=== PATIENT | female | born 1965 | race Caucasian/White ===

== ENCOUNTER → 2018-05-26 | Outpatient (CLI) | payer BC ==
[~2018-05-26] MED LIST: CATHETER FLUSH 10 ML SYR IV PRN; CYCL10TA9 PO; IOHEXOL 350 MG/ML 100 ML (OMNIPAQUE 350) VIAL IV ONE; NAPR-243 PO; NS 100 ML (IVPB) BAG IV ONE
[2018-05-26 15:46] LABS: BASOPHILS % (AUTO) 0 % (0-10); EOSINOPHILS # (AUTO) 0.1 10^3/uL (0.0-0.3); EOSINOPHILS % (AUTO) 1 % (0-10); HEMATOCRIT 39 % (35-52); HEMOGLOBIN 13.2 G/DL (11.5-16.0); LYMPHOCYTES # (AUTO) 1.8 X 10^3 (1.0-4.0); LYMPHOCYTES % (AUTO) 26 % (12-44); MEAN CORPUSCULAR HEMOGLOBIN 29 PG (25-34); MEAN CORPUSCULAR HGB CONC 34 G/DL (32-36); MEAN CORPUSCULAR VOLUME 87 FL (80-99); MEAN PLATELET VOLUME 9.5 FL (7.4-10.4); MONOCYTES # (AUTO) 0.5 X 10^3 (0.0-1.0); MONOCYTES % (AUTO) 7 % (0-12); NEUTROPHILS # (AUTO) 4.7 X 10^3 (1.8-7.8); NEUTROPHILS % (AUTO) 67 % (42-75); PLATELET COUNT 318 10^3/uL (130-400); RED CELL DISTRIBUTION WIDTH 13.9 % (10.0-14.5); WHITE BLOOD COUNT 7.1 10^3/uL (4.3-11.0)
[2018-05-26 16:10] LABS: ALANINE AMINOTRANSFERASE 18 U/L (0-55); ALBUMIN 4.4 GM/DL (3.2-4.5); ALKALINE PHOSPHATASE 94 U/L (40-136); BILIRUBIN,TOTAL 0.4 MG/DL (0.1-1.0); BUN/CREATININE RATIO 19; CARBON DIOXIDE 27 MMOL/L (21-32); CHLORIDE 106 MMOL/L (98-107); CREATININE SERUM 0.69 MG/DL (0.60-1.30); GFR ESTIMATED > 60; GLUCOSE 99 MG/DL (70-105); POTASSIUM 4.1 MMOL/L (3.6-5.0); SODIUM 141 MMOL/L (135-145); TOTAL PROTEIN 7.4 GM/DL (6.4-8.2)
--- NOTE | 2018-05-26 16:55 | Diagnostic Imaging Report ---
PROCEDURE: CT abdomen and pelvis with contrast. TECHNIQUE: Multiple contiguous axial images were obtained through the abdomen and pelvis after administration of intravenous contrast. INDICATION: Right lower quadrant pain with diarrhea. FINDINGS: The air-containing appendix is unremarkable in appearance. No pericecal or periappendiceal edema or inflammation. There are no findings of appendicitis. There is no diverticulitis. Urinary tracts are unobstructed. There is cyst formation off the lower pole of the left kidney. The gallbladder is contracted. The liver and bile ducts are normal. The spleen, adrenals, and pancreas are unremarkable. The aortoiliac and mesenteric vessels are patent and nonaneurysmal. The uterus, adnexa, and urinary bladder are unremarkable. IMPRESSION: No evidence for appendicitis. Noninflamed diverticulosis. No bowel, biliary, or urinary tract obstruction. Left lower pole renal cortical cyst noted. There is some infiltration of the left perinephric fat adjacent to its lower pole, which may be chronic and reflective of old scarring. No hydronephrosis. Dictated by: Dictated on workstation # [id number]
== END ==
LOC: RAD 15:26
PROVIDERS: ATTEND Nurse Practitioner Family
DX: N28.1 Cyst of kidney, acquired (principal); K57.30 Diverticulosis of large intestine without perforation or abscess without bleeding
CPT/HCPCS: 36415; 74177; 80053; 85025

== ENCOUNTER 2023-07-20 18:31 | Emergency (ER) | payer BC, OTHER ==
[~2023-07-20] VITALS: Ht 162 cm; Wt 77.0 kg
[~2023-07-20 18:31] MED LIST changes: -CATHETER FLUSH 10 ML SYR IV PRN; -IOHEXOL 350 MG/ML 100 ML (OMNIPAQUE 350) VIAL IV ONE; -NS 100 ML (IVPB) BAG IV ONE
[2023-07-20 18:41] VITALS: BP 154/97
--- NOTE | 2023-07-20 19:19 | Diagnostic Imaging Report ---
PROCEDURE: CT head and maxillofacial without contrast. TECHNIQUE: Multiple contiguous axial images were obtained through the head and facial bones without the use of intravenous contrast. Auto Exposure Controls were utilized during the CT exam to meet ALARA standards for radiation dose reduction. INDICATION: Left eye redness and pain. Eye infection. Evaluate for foreign body. COMPARISON: No relevant comparison available. FINDINGS: The CT of the head demonstrates no evidence of an acute intracranial abnormality. There is no finding of intracranial hemorrhage. There is no intracranial mass effect or shift. There is no hydrocephalus. There is no extra-axial collection. Higginbotham-white matter differentiation is well-maintained. There is no finding of edema. Mastoid air cells are clear. The calvarium is unremarkable. The CT of the face demonstrates no evidence of an intraorbital or intraocular foreign body. There is no significant intraorbital fat stranding. There is no finding of inflammation within the post-septal orbit. There is no significant preseptal soft tissue swelling. There is no gas or abscess. There is no finding of an acute facial fracture. There is some minimal mucosal thickening in the ethmoids and left maxillary sinus. IMPRESSION: 1. No CT evidence of an acute intracranial abnormality. 2. No finding of an orbital foreign body or CT evidence of post septal inflammation within the orbit. There is no definable gas or abscess. Dictated by: Dictated on workstation # [id number]
--- NOTE | 2023-07-20 19:37 | ED EENT ---
History of Present Illness General Chief Complaint: Eye Problems Stated Complaint: EYE PAIN Nursing Triage Note: PT TO ED W/ C/O LT EYE REDNESS ONSET 07/05. REPORTS WAS SEEN AT DR PEREZ'S OFFICE, DX'D W/ "BACTERIAL INFECTION" PRESCRIBED ABX GTTS BUT DENIES IMPROVEMENT. STATES WORKS AT [employer] THINKS MAY HAVE POSS FB IN EYE Source: patient History of Present Illness Date Seen by Provider: Jul 20, 2023 Allergies and Home Medications Allergies Coded Allergies: No Known Drug Allergies (Unverified , 12/30/12) Patient Home Medication List Cyclobenzaprine Hcl (Cyclobenzaprine Hcl) 10 Mg Tablet, 1 EACH PO Q8HR PRN Prescribed by: JORGE RAMIREZ on 08/26/121904 Naproxen (Naprosyn) 500 Mg Tablet, 1 EACH PO TID PRN Prescribed by: JORGE RAMIREZ on 08/26/121904 Past Wvbdkye-Vbpyuc-Hohihk Hx Patient Social History Tobacco Use?: Yes Tobacco type used: Cigarettes Smoking Status: Current Everyday Smoker Use of E-Cig and/or Vaping dev: No Substance use?: No Alcohol Use?: No Pt feels they are or have been: No Seasonal Allergies Seasonal Allergies: No Past Medical History Surgery/Hospitalization HX: DENIED Surgeries: No Physical Exam Vital Signs Vital Signs - First Documented 07/20/23 18:41 Temp 37.2 Pulse 112 Resp 20 B/P (MAP) 154/97 (116) Pulse Ox 98 O2 Delivery Room Air Height, Weight, BMI Height: 5'4.00" Weight: 145lbs. oz. 65.301499gy; 29.00 BMI Method:Stated Progress/Results/Core Measures Results/Orders My Orders Orders - JORGE RAMIREZ DO Ct Head/Maxillofacial Wo (07/20/23 18:55) Vital Signs/I&O 07/20/23 18:41 Temp 37.2 Pulse 112 Resp 20 B/P (MAP) 154/97 (116) Pulse Ox 98 O2 Delivery Room Air Blood Pressure Mean: [address] HEAD/MAXILLOFACIALS-- PER RADIOLOGIST REPORT AT 1935 COMPARISON: No relevant comparison available. FINDINGS: The CT of the head demonstrates no evidence of an acute intracranial abnormality. There is no finding of intracranial hemorrhage. There is no intracranial mass effect or shift. There is no hydrocephalus. There is no extra-axial collection. Higginbotham-white matter differentiation is well-maintained. There is no finding of edema. Mastoid air cells are clear. The calvarium is unremarkable. The CT of the face demonstrates no evidence of an intraorbital or intraocular foreign body. There is no significant intraorbital fat stranding. There is no finding of inflammation within the post-septal orbit. There is no significant preseptal soft tissue swelling. There is no gas or abscess. There is no finding of an acute facial fracture. There is some minimal mucosal thickening in the ethmoids and left maxillary sinus. IMPRESSION: 1. No CT evidence of an acute intracranial abnormality. 2. No finding of an orbital foreign body or CT evidence of post septal inflammation within the orbit. There is no definable gas or abscess. Reviewed: Reviewed by Me Departure Impression Primary Impression: Conjunctivitis Disposition: HOME, SELF-CARE Condition: Stable Departure-Patient Inst. Decision time for Depature: 19:35 Ref[place]: [facility] [place] Primary Care Physician MANA PEREZ OD Patient Instructions: Conjunctivitis ([place]) (DC) Add. Discharge Instructions: STOP CURRENT ANTIBIOTIC DROPS AND START NEW ANTIBIOTIC EYE DROPS TYLENOL AND MOTRIN FOR PAIN FOLLOW UP WITH DR. PEREZ'S OFFICE IN 2-3 DAYS FOR FURTHER CARE All discharge instructions reviewed with patient and/or family. Voiced understanding. Scripts Sulfamethoxazole/Trimethoprim (Bactrim Ds Tablet) 1 Each Tablet 1 EACH PO BID, #20 TAB Prov: JORGE RAMIREZ DO 07/20/23 Ciprofloxacin HCl/Dexameth (Ciprodex Otic Suspension) 0.3 %-0.1 % Soln 7.5 ML OT BID for 7 Days, #1 EA Prov: JORGE RAMIREZ DO 07/20/23 JORGE RAMIREZ DO Jul 20, 2023 19:37
[2023-07-20] MEDS ORDERED: RX-TRIMETH/SULFA. 160-800 MG (BACTRIM DS) TAB PPK#2 PO STA (19:38)
[2023-07-20] MEDS ORDERED: NF-CIPDEC OT (19:41)
[2023-07-20] MEDS ORDERED: SULF1TAB38 PO (19:41)
== END 2023-07-20 19:47 | disposition home or self-care (01) ==
LOC: EDUNIT# 18:31 → ER 18:34
DX: H10.9 Unspecified conjunctivitis (principal); F17.210 Nicotine dependence, cigarettes, uncomplicated
CPT/HCPCS: 70450; 70486